=== PATIENT | female | born 1945 | race Caucasian/White ===

== ENCOUNTER 2024-01-31 07:17 | Emergency (ER) | payer MEDICARE, SELFPAY ==
[2024-01-31 07:19] VITALS: BP 199/86; PULSE 59; RESP 16; TEMP 36.1; O2SAT 96; BMI 36.0
--- NOTE | 2024-01-31 07:29 | EX.ED.DYSGE1 ---
HPI History of Present Illness Chief Complaint: Lower Extremity Injury PFSH PFS Home Medications ?Medication ?Instructions ?Recorded ?Last Taken ?Type oxycodone 5 mg capsule 5 mg PO Q6H PRN pain 3 days #12 01/31/24 Unknown Rx caps Allergy/AdvReac Type Severity Reaction Status Date / Time No Known Allergies Allergy Verified 01/31/24 07:18 EXAM Physical Exam Const Vital Signs: 01/31/24 07:19 Temperature 97 F L Temperature Source Temporal Pulse Rate 59 L Respiratory Rate 16 Blood Pressure 199/86 H Blood Pressure Mean 123 Pulse Ox 96 [facility] Narrative Medical decision making narrative: HISTORY OF PRESENT ILLNESS: 78-year-old female presents with back pain Notes pain in her right lower back, right buttock region that radiates down the leg. Notes she is doing yard work this weekend. She initially tried stretches but her pain continues to get worse. Intact sensation L1-S1 dermatomal distributions. Intact 5/5 strength in hip flexion (T12-L3). Knee extension (L2-L4). Ankle dorsiflexion (L4-L5). Ankle plantar flexion (S1). Great toe extension (L5). 2+ patellar and Achilles DTRs. Patient denies active cancer, being bedridden for greater than 3 days, denies unilateral leg swelling, denies any varicose veins, denies any calf tenderness, denies tenderness along deep venous system. Denies major surgery within 12 weeks, recent paralysis, previous DVT. REVIEW OF SYSTEMS: Pertinent positives: back pain, leg pain Pertinent negatives: Bowel or bladder incontinence, urinary retention PHYSICAL EXAM: Nursing triage notes reviewed, Vital signs reviewed Constitutional: please see [facility] HENT: MMM Eyes: Pupils equal round and reactive to light, Extraocular muscles intact Neck: No stridor, no JVD, full neck ROM Lungs: Clear to auscultation, No wheezing or rales. No increased work of breathing, no conversational dyspnea, no accessory muscle use, no nasal flaring. No respiratory distress noted Heart: Regular rate and rhythm, No murmurs, No rubs and No gallops, 2+ distal pulses (radial, femoral, posterior tibial) in all extremities Abdomen: Soft, there is no tenderness, rigidity, rebound or guarding, no obvious peritoneal signs, no palpable pulsatile abdominal masses, no auscultated abdominal bruit : No CVAT Extremities: No edema Neuro: N intact sensation L1-S1 dermatomal distributions. Intact 5/5 strength in hip flexion (T12-L3). Knee extension (L2-L4). Ankle dorsiflexion (L4-L5). Ankle plantar flexion (S1). Great toe extension (L5). 2+ patellar and Achilles DTRs. Skin: No rash or lesions noted MEDICAL DECISION MAKING: Chief Complaint: Leg pain External records reviewed: Recent adVanced imaging of the chest noted MDM Narrative: Patient is initially hypertensive otherwise afebrile nontoxic-appearing. Exam without midline step-offs deformities, no focal deficits. Exam history most consistent with likely lumbar radiculopathy versus sciatica. I considered the following differential diagnosis: Space-occupying spine, musculoskeletal etiology There are no red flag symptoms to suggest a space-occupying or spine including epidural abscess, conus medullaris, epidural hematoma. Gave oral narcotics, anti-inflammatories and Tylenol for symptomatic relief. Wrote a prescription for oxycodone and give strict return precautions and follow-up instructions. The patient and/or family, caregivers express understanding. The patient and/or family, caregivers agrees with the plan. Shared decision making: I will have a discussion with the patient and or visitors regarding risk/benefits of further testing or admission. They will be made aware of of the risk/benefits inherent in this decision they will be given the opportunity to voice understanding. Total critical care time today provided was at least 0 minutes. This excludes separately billable procedures. Critical care time (if documented) is secondary to the patient having high probability of clinically significant/life threatening deterioration in the patient's condition which required my urgent intervention. Impression: 1. Sciatica 2. Acute lumbar radiculopathy Dispo: Discharge home This note was generated with [employer] dictation software. It may contain incorrect words, spelling, and punctuation that were not noted in review of the chart prior to signing. Discharge Plan Triage Chief Complaint: Lower Extremity Injury ED Provider: James Edwards Dx/Rx/DC Orders Instructions: ED Sciatica Prescriptions: New oxycodone 5 mg capsule 5 mg PO Q6H PRN (Reason: pain) 3 Days Qty: 12 0RF Primary Care Provider: Dennis Rodríguez Referrals: Dennis Rodríguez, [Primary Care Provider] - Activity Restrictions/Additional Instructions: Thank you for trusting us with your care today! Please take Tylenol (2 pills, 650 mg), ibuprofen (2 pills, 400 mg) every 6 hours as needed for pain and fever control. Please go to local pharmacy or drugstore and obtain Salonpas lidocaine patches apply these as directed. Please return to the emergency department if your symptoms change or worsen. Please follow with your primary care physician for further outpatient evaluation and management. Print Language: [place]at[place]
[2024-01-31] MEDS: oxyCODONE 5 MG Tablet PO (08:26)
[2024-01-31] MEDS: Ibuprofen 200 MG Tablet 400 MG PO (08:26)
[2024-01-31] MEDS: dexAMETHasone 10 MG/ML Vial 6 MG IM (08:27)
[2024-01-31] MEDS: Acetaminophen 325 MG Tablet 650 MG PO (08:27)
[2024-01-31 08:58] VITALS: BP 153/87; PULSE 87; RESP 18; TEMP 36.1
== END 2024-01-31 09:00 | disposition home or self-care (01) ==
PROVIDERS: Emergency Provider Emergency Medicine; PCP Student in an Organized Health Care Education/Training Program; Visit Provider Emergency Medicine
DX: M54.16 Radiculopathy, lumbar region (principal); M54.31 Sciatica, right side
CPT/HCPCS: 96372; 99284